=== PATIENT | female | born 1970 | race Caucasian/White ===

== ENCOUNTER 2016-11-10 08:11 | Inpatient (IN) | payer OTHER ==
[2016-11-09 09:50] VITALS: BMI 44.0
[2016-11-10] MEDS ORDERED: PROPOFOL 20 ML ONE ×2 (10:18)
[2016-11-10] MEDS ORDERED: ROCURONIUM BROMIDE 50 MG/5 ML VIAL ONE (10:18)
[2016-11-10] MEDS ORDERED: MIDAZOLAM HCL 2 MG/2 ML SINGLE DOSE VIAL ONE (10:18)
[2016-11-10] MEDS ORDERED: DEXAMETHASONE SOD PHOSPHATE 4 MG/1 ML VIAL ONE (10:20)
[2016-11-10] MEDS ORDERED: ceFAZolin SODIUM 1 GM VIAL ONE (10:20)
[2016-11-10] MEDS ORDERED: LIDOCAINE HCL/PF 2% SDV 5ML VIAL ONE (10:20)
[2016-11-10] MEDS ORDERED: KETOROLAC TROMETHAMINE 30 MG/1 ML VIAL ONE (10:20)
[2016-11-10] MEDS ORDERED: ceFAZolin SODIUM 1 GM VIAL IVPB ONE (11:18)
[2016-11-10] MEDS ORDERED: BUPIVACAINE HCL/PF 0.5% (5MG/ML) 10 ML VIAL ONE ×2 (11:47→12:33)
[2016-11-10] MEDS ORDERED: DESFLURANE GAS 240 ML BOTTLE IH ONE (11:47)
[2016-11-10] MEDS ORDERED: BUPIVACAINE HCL/PF 0.5% (5MG/ML) 10 ML VIAL IJ ONE (13:23)
[2016-11-10] MEDS ORDERED: morphine CARPU-JECT 4 MG/1 ML DISP.SYRIN ONE (14:04)
[2016-11-10] MEDS ORDERED: morphine CARPU-JECT 2 MG/1 ML DISP.SYRIN IVPUSH PRN (14:07)
[2016-11-10] MEDS ORDERED: ONDANSETRON 4 MG/2 ML VIAL IVPUSH PRN (14:07)
[2016-11-10] MEDS ORDERED: HYDROmorphone *PCA* 10MG/50ML DISP.SYRIN PCA SCH (14:15)
[2016-11-10] MEDS ORDERED: LACTATED RINGERS SOLUTION 1,000 ML IV SCH (14:15)
[2016-11-10 14:17] LABS: MCH 28.7 pg (25.7-33.7); MCHC 33.3 g/dl (32.0-36.0); MEAN CELL VOLUME 86.3 fl (80-96); MEAN PLT VOLUME 7.8 fl (7.5-11.1); PLATELET COUNT 238 K/MM3 (134-434); RDW 13.7 % (11.6-15.6); WHITE BLOOD COUNT 16.9 K/mm3 (4.0-10.0)
[2016-11-10] MEDS ORDERED: ACETAMINOPHEN INJECTION 100 ML IVPB ONE (14:21)
[2016-11-10] MEDS ORDERED: ACETAMINOPHEN 1000 MG/100 ML VIAL (NON FORMULARY) IVPB ONE (14:23)
[2016-11-10] MEDS ORDERED: TRIMETHOBENZAMIDE HCL 200MG/2ML INJ IM PRN (14:26)
[2016-11-10 14:43] LABS: ALBUMIN 3.2 g/dl (3.4-5.0); ALK PHOS 71 U/L (45-117); ANION GAP 10 (8-16); BILIRUBIN,TOTAL 0.3 mg/dL (0.2-1.0); CALCIUM 8.8 mg/dL (8.5-10.1); CO2 25 mmol/L (21-32); CREATININE 0.9 mg/dL (0.55-1.02); GLUCOSE,RANDOM 128 mg/dL (74-106); SGOT/AST 28 U/L (15-37); SGPT/ALT 24 U/L (12-78); TOT PROT 6.5 g/dl (6.4-8.2)
--- NOTE | 2016-11-10 15:16 | OP ---
DATE OF OPERATION: 11/10/2016 PREOPERATIVE DIAGNOSES: 1. Morbid obesity. 2. Gastroesophageal reflux disease. 3. Vomiting. 4. Mechanical complication of implantable device secondary to gastric band. POSTOPERATIVE DIAGNOSES: 1. Morbid obesity. 2. Gastroesophageal reflux disease. 3. Vomiting. 4. Mechanical complication of implantable device secondary to gastric band. 5. Abdominal adhesions. 6. Fibrous capsule around the stomach. PROCEDURE PERFORMED: 1. Laparoscopic vertical sleeve gastrectomy. 2. Removal of gastric band from subcutaneous port component. 3. Laparoscopic lysis of adhesions. 4. Excision of fibrous capsule around the stomach. 5. Diagnostic laparoscopy. OPERATING SURGEON: Maria Luisa Andrade MD HANDKERCHIEF CUTTER: Edmar Wilcox MD ANESTHESIA: General. OPERATIVE PROCEDURE: The patient was brought in to the operating room, placed on the OR table in supine position. All precautions were taken initially including padding for the back and the feet and Venodyne boots were placed on both lower extremities. At that point the abdomen was prepped and draped in the usual manner. A Veress needle was placed in the left upper quadrant and a pneumoperitoneum was established. A number 12 bladeless trocar was placed in the left upper quadrant. Through that trocar, a laparoscopic camera was placed. Under direct vision, a number 15 bladeless trocar was placed in the midline in a supraumbilical position, and a number 5 bladeless trocar was placed in the left costal margin. There were a lot of adhesions in the right upper quadrant secondary to the patient's previous surgery. These adhesions were lysed with a laparoscopic scissors until enough clearing was made in the right upper quadrant that a number 5 bladeless trocar was placed below the right costal margin. At this point a Kellie liver retractor was placed in the epigastrium to retract the left lobe of the liver. The patient was then placed in a 20-degree reverse Trendelenburg position and the band around the stomach was noted. The band was then pulled by the advertising assistant manager surgeon to the patient's left side. The operating surgeon dissected the fibrous capsule over the band on the lesser curvature. Once this was in full view, the band was then pulled to the patient's right side by the operating surgeon as the advertising assistant manager surgeon retracted the stomach downward. Now the capsule over the greater curvature of the band was removed and now the band was freely moveable. The band was then cut in 2 and both pieces were removed and sent off the field to Pathology as a specimen. Attention was now directed to the fibrous capsule around the stomach. This was lifted up by the advertising assistant manager and the operating surgeon and a laparoscopic scissors was used to split the fibrous capsule on the stomach from inferior all the way to superior by the liver. Once this was done, attention was now directed to the in the greater curvature. This was dissected free until the stomach was now free of all scar tissue on the greater curvature side. At this juncture, Anesthesia had a number [address] and placed it all the way until the distal stomach. With the bougie held on the lesser curve, a series of cristine were performed, the 1st two being black load cristine along the bougie 6 cm in length. This was followed by a series of purple load cristine until the final staple was fired in the left upper quadrant. The greater curve was now completely detached from the lesser curve. It should be noted that prior to firing each staple, both the anterior and posterior hunter were checked that they were equal and the area of esophagogastric junction, approximately 1.5 cm serosa remained on both the anterior and posterior hunter. At this juncture, saline was placed around the staple line and Anesthesia inserted air through the bougie, which showed the entire stomach distended, no leaks were noted, and no obstruction. At this point the resected greater curve was removed through the number 15 trocar site and sent off the field to Pathology as a specimen. Under direct vision, all trocars removed and pneumoperitoneum released. The number 15 port site was now opened and dissected with continuous electrocautery to the fibrous capsule around the port. The port fibrous capsule was dissected off the port and the port was removed from the right anterior rectus muscle and sent off the field as specimen with the rest of the band. At that point, all trocar sites received 0.25% Marcaine and were closed with 4-0 Biosyn in subcuticular fashion except for the area of the port, which 1st was closed with 3-0 Vicryl in subcutaneous fashion, followed by 4-0 Biosyn in subcuticular fashion. Dressings were applied. Patient awoken from anesthesia and transferred out of the operating room to the recovery room in stable condition. ANESTHESIA FOR CASE: General. SURGEON: Maria Luisa Andrade MD HANDKERCHIEF CUTTER: Edmar Wiclox MD EXPECTED BLOOD LOSS: 50 mL. Patient transferred to the recovery room in stable condition. MARIA LUISA ANDRADE M.D. MEENA/[id number]
--- NOTE | 2016-11-10 16:20 | EKG ---
Test Reason : Blood Pressure : / mmHG Vent. Rate : 093 BPM Atrial Rate : 093 BPM P-R Int : 144 ms QRS Dur : 086 ms QT Int : 382 ms P-R-T Axes : 061 050 043 degrees QTc Int : 474 ms NORMAL SINUS RHYTHM NORMAL ECG WHEN COMPARED WITH ECG OF 15-SEP-2016 08:43, QT HAS LENGTHENED Confirmed by DANIEL MORAN MD ([id number]) on 11/10/2016 4:20:39 PM Referred By: Niles Andrade Confirmed By:DANIEL MORAN MD
[2016-11-10] MEDS: SODIUM CHLORIDE 1,000 ML IV SCH (16:30)
[2016-11-10] MEDS ORDERED: LORAZEPAM CARPU-JECT 2 MG/ML DISP.SYRIN IVPUSH PRN (21:21)
[2016-11-10] MEDS: ENOXAPARIN NA (PORCINE) 40 MG/0.4 ML DISP.SYRIN SQ SCH (22:22)
[2016-11-10] MEDS: FAMOTIDINE 20 MG/50 ML IVPB 50 ML IVPB SCH (22:24)
[2016-11-11] MEDS: SODIUM CHLORIDE 1,000 ML IV SCH (06:00)
[2016-11-11 08:03] LABS: MCH 29.2 pg (25.7-33.7); MCHC 33.7 g/dl (32.0-36.0); MEAN CELL VOLUME 86.6 fl (80-96); MEAN PLT VOLUME 8.1 fl (7.5-11.1); PLATELET COUNT 223 K/MM3 (134-434); RDW 13.7 % (11.6-15.6); WHITE BLOOD COUNT 13.1 K/mm3 (4.0-10.0)
[2016-11-11 08:31] LABS: ALBUMIN 2.7 g/dl (3.4-5.0); ANION GAP 8 (8-16); BILIRUBIN,TOTAL 0.4 mg/dL (0.2-1.0); CALCIUM 8.2 mg/dL (8.5-10.1); CO2 26 mmol/L (21-32); CREATININE 0.7 mg/dL (0.55-1.02); GLUCOSE,RANDOM 91 mg/dL (74-106); SGOT/AST 31 U/L (15-37); SGPT/ALT 20 U/L (12-78); TOT PROT 5.8 g/dl (6.4-8.2)
[2016-11-11 08:32] LABS: ALK PHOS 62 U/L (45-117)
[2016-11-11] MEDS: ENOXAPARIN NA (PORCINE) 40 MG/0.4 ML DISP.SYRIN SQ SCH (10:09)
[2016-11-11] MEDS: FAMOTIDINE 20 MG/50 ML IVPB 50 ML IVPB SCH (10:09)
[2016-11-11] MEDS ORDERED: ACETAMINOPHEN 325 MG TABLET (FP) PO PRN (14:33)
[2016-11-11] MEDS ORDERED: oxyCODONE HCL 5 MG TABLET PO PRN (14:33)
[2016-11-11] MEDS ORDERED: SODIUM CHLORIDE 1,000 ML IV SCH (14:45)
--- NOTE | 2016-11-11 16:51 | PN ---
Progress Note (short form) - Note Progress Note: POD #1 Afebrile, VSS P- 73-74 BP_102/66 Pt doing well No N/V Tolerating po clear liquids- 2 oz po TID P/E- Abd- all trocar sites clean, dry WBC- 13.1 ( decreased from 16.9) H/H- 12.4/36.8 UGI- no leak, no obstruction P- D/C pt home F/U- in office in 6 days
[2016-11-11 17:54] VITALS: BP 96/56; PULSE 86; TEMP 98.4
--- NOTE | 2016-11-14 13:38 | PATH ---
Surgical Pathology Report Patient Name: LUIS GUILLAUME [facility]. Rec. #: [id number] /Age/Gender: 1970 (Age: 46) / F Account: [id number] Location: 4 SO PEDS/ADOL Taken: 11/10/2016 Received: 11/11/2016 Reported: 11/14/2016 Physicians: Niles Andrade M.D. Specimen(s) Received A: GREATER CURVATURE OF STOMACH B: GASTRIC BAND & PORT Clinical History Obesity, reflux Final Diagnosis A. STOMACH, GREATER CURVATURE, VERTICAL SLEEVE GASTRECTOMY: PORTION OF STOMACH WITH MILD CHRONIC GASTRITIS. IMMUNOSTAIN FOR H.PYLORI IS NEGATIVE FOR ORGANISMS. B. 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 Electronically Signed James Pierson M.D. Gross Description A. Received in formalin, labeled "greater curvature of the stomach," is a 71 gram, 14.0 x 5.0 x 2.2 cm. portion of stomach with a stapled margin of resection. The serosa is sales-enriquez with minimal attached fat. The mucosa is sales-pink with focally flattened folds No mucosal masses are identified. Room Clerk sections are submitted in one cassette. B. Received fresh labeled "gastric band and subQ port" are 2 portions of a gastric band measuring 7.3 x 1.8 x 0.9 cm and 9.0 x 1.8 x 0.9 cm. The smaller portion displays an attached 29 cm in length portion of tubing. Also received within the same container is a 3.1 cm in diameter x 1.7 cm in depth sales, circular device, consistent with a port. The port displays an 18 cm in length portion of tubing extending from one aspect. No soft tissue is present. No sections are submitted, gross only. DL/11/11/2016 saudi/11/11/2016
== END 2016-11-11 18:35 | disposition home or self-care (01) | DRG 620 ==
LOC: JSAMEDAYSX 08:11 → J4S 16:10
PROVIDERS: ADMIT Surgery; ATTEND Surgery
PROC: 0WP Anatomical Regions, General, Removal (ICD-10-PCS; 2016-11-10)
PROC: 0DB64Z3 Excision of Stomach, Percutaneous Endoscopic Approach, Vertical (ICD-10-PCS; principal; 2016-11-10 10:00)
PROC: 0DNW4ZZ Release Peritoneum, Percutaneous Endoscopic Approach (ICD-10-PCS; 2016-11-10 10:00)
DX: E66.01 Morbid (severe) obesity due to excess calories (principal); T85.598A Other mechanical complication of other gastrointestinal prosthetic devices, implants and grafts, initial encounter; Z68.41 Body mass index [BMI] 40.0-44.9, adult; K21.9 Gastro-esophageal reflux disease without esophagitis; R11.10 Vomiting, unspecified; Y83.9 Surgical procedure, unspecified as the cause of abnormal reaction of the patient, or of later complication, without mention of misadventure at the time of the procedure; K66.0 Peritoneal adhesions (postprocedural) (postinfection)
CPT/HCPCS: 36415; 74241-TC; 80053; 84703; 85027; 86850; 86900; 86901; 88300-TC; 88305-TC; 93005; 93010; 94010; 94760

== ENCOUNTER 2016-11-17 11:05 | Emergency (ER) | payer OTHER ==
[2016-11-17 11:10] VITALS: TEMP 98.1; BMI 42.0
[2016-11-17] MEDS ORDERED: SODIUM CHLORIDE 1,000 ML IV STA ×2 (11:12→15:18)
[2016-11-17] MEDS ORDERED: ONDANSETRON 4 MG/2 ML VIAL IVPB ONE (11:13)
--- NOTE | 2016-11-17 11:13 | PDOC ---
History of Present Illness - General Chief Complaint: Weakness Stated Complaint: R LEG PINCHING, WEAKNESS Time Seen by Provider: 11/17/16 11:11 - History of Present Illness Initial Comments: 11/17/16 12:47 Complaint: Pain right leg History of present illness: Localized pain in the right calf, medially, just below the knee, beginning 4 days ago. Pain has now subsided, but when she told her surgeon at follow-up visit about the pain, he referred her to the emergency room to make sure there was no DVT. She underwent removal of a LAP-BAND with replacement by a gastric sleeve approximately one week ago. This surgery was uncomplicated. Review of systems: There was no redness, swelling, posterior calf or ankle pain. There was no injury. There was left shoulder pain that persists after the surgery, presumably due to diaphragmatic irritation from laparoscopy. There has been increased shortness of breath with exertion for the last 2 days, when climbing hills and walking her dog. No nanci chest pain, fever, cough, nausea, diaphoresis. No vomiting, tolerating by mouth fluids well. Several episodes of diarrhea over the weekend which have resolved Past medical history: Sleep apnea, morbid obesity, LAP-BAND surgery, GERD, mood disorder Medications: NuvaRing, Prozac, Protonix ALLERGIES: Morphine, hydrocodone, oxycodone Social history/family history reviewed and noncontributory. Physical exam: Alert and oriented 3, well-developed well-nourished, no acute distress, cheerful and cooperative Afebrile, vital signs normal except for mild tachycardia 122 bpm. oxygen saturation of 100% on room air. Rate 16 unlabored. PERRLA 4 mm, fundi benign, ENT clear Neck supple without bruit mass or nodes Chest clear CV regular without murmur rub or gallop pulses full and symmetric no JVD or edema Abdomen with scar secondary to recent laparoscopic surgery. Nondistended. Bowel sounds normal. Soft without mass tenderness or organomegaly. Neurological intact Extremities: The right leg shows no swelling, edema, tenderness, cords, erythema , or induration. Pulses are full. No distal sensory or motor deficits. Impression: Transient localized pain in the right calf, medially, just below the knee, which has resolved. This was subsequent to laparoscopic surgery. Mild tachycardia and dyspnea with exertion, possibly due to dehydration Plan: CBC, chemistries, ultrasound, and further evaluation depending on results. Past History - Past Medical History Allergies/Adverse Reactions: Allergies Allergy/AdvReac Type Severity Reaction Status Date / Time hydrocodone Allergy Severe Rash Verified 11/17/16 11:06 morphine Allergy Severe Itching Verified 11/17/16 11:06 oxycodone AdvReac Mild Itching Verified 11/17/16 11:06 Home Medications: Ambulatory Orders Etonogestrel/Ethinyl Estradiol [Nuvaring Vaginal Ring] 1 applic ASDIR 03/01/16 Fluoxetine HCl [Prozac] 90 mg PO WEEKLY 03/01/16 Pantoprazole Sodium [Protonix] 40 mg PO DAILY 03/01/16 Anemia: Yes (MANY YEARS AGO) Asthma: No Cancer: No Cardiac Disorders: No CVA: No COPD: No CHF: No Dementia: No Diabetes: No GI Disorders: Yes (reflux) Disorders: No HTN: No Hypercholesterolemia: No (BORDERLINE/DIET CONTROLLED) Liver Disease: No Seizures: No Thyroid Disease: No - Surgical History Abdominal Surgery: Yes (LAP BAND 2008,LOST 68 LBS) Appendectomy: No Cardiac Surgery: No Cholecystectomy: No Lung Surgery: No Neurologic Surgery: No Orthopedic Surgery: No - Psycho/Social/Smoking Cessation Hx Anxiety: No Suicidal Ideation: No Smoking History: Never smoked Have you smoked in the past 12 months: No If you are a former smoker, when did you quit?: 2004 Information on smoking cessation initiated: No Hx Alcohol Use: Yes Drug/Substance Use Hx: No Substance Use Type: Alcohol Hx Substance Use Treatment: No *Physical Exam - Vital Signs Last Vital Signs Temp Pulse Resp BP Pulse Ox 98.1 F 122 H 18 130/96 100 11/17/16 11:06 11/17/16 11:06 11/17/16 11:06 11/17/16 11:06 11/17/16 11:06 ED Treatment Course - LABORATORY CBC & Chemistry Diagram: 11/17/16 11:19 11/17/16 11:19 Medical Decision Making - Medical Decision Making 11/17/16 13:08 Vascular study of the right leg negative for DVT. Laboratories including ABG pending. IV fluid administered. 11/17/16 14:55 ABG is normal. Heart rate has normalized to 80 after fluids. Physical exam remains unchanged. Patient is feeling better. Seen in the ER by surgery PA Wilma Mclaughlin. She will follow. Patient discharged fully ambulatory and in no pain or other discomfort with no shortness of breath to follow up as directed 11/17/16 15:17 *DC/Admit/Observation/Transfer Diagnosis at time of Disposition: Dehydration Leg pain Qualifiers: Laterality: right Qualified Code(s): M79.604 - Pain in right leg - Discharge Dispostion Disposition: HOME Condition at time of disposition: Improved Admit: No - Referrals Referrals: Niles Andrade MD [Primary Care Provider] - 3 days - Patient Instructions Printed Discharge Instructions: DI for Dehydration -- Adult
[2016-11-17 12:21] LABS: BASOPHIL 2.8 % (0-2.0); MCH 29.6 pg (25.7-33.7); MCHC 34.7 g/dl (32.0-36.0); MEAN CELL VOLUME 85.5 fl (80-96); MEAN PLT VOLUME 9.1 fl (7.5-11.1); NEUTROPHILS 66.9 % (42.8-82.8); PLATELET COUNT 264 K/MM3 (134-434); RDW 12.4 % (11.6-15.6); WHITE BLOOD COUNT 15.2 K/mm3 (4.0-10.8)
[2016-11-17 12:49] LABS: PH,URINE 5.5 (4.5-8); URINE APPEARANCE Cloudy; URINE BILIRUBIN 2+ (NEGATIVE); URINE GLUCOSE (UA) Negative (NEGATIVE); URINE KETONE 2+ (NEGATIVE); URINE LEUK ESTERASE Negative (NEGATIVE); URINE NITRITE Negative (NEGATIVE); URINE UROBILINOGEN 1.0 E.U/dl (0.2-1.0)
[2016-11-17 12:52] LABS: URINE BLOOD 2+ (NEGATIVE); URINE COLOR YELLOW; URINE PROTEIN 1+ (NEGATIVE)
[2016-11-17 12:53] LABS: URINE WBC 0-3 (3-5)
[2016-11-17 12:54] LABS: URINE BACTERIA MODERATE /hpf (NEGATIVE)
[2016-11-17 13:44] LABS: ARTERIAL BLD GAS O2 SATURATION 98.4 % (90-98.9); ARTERIAL BLOOD GAS pH 7.39 (7.35-7.45)
[2016-11-17 13:45] LABS: ALLENS TEST POSITIVE; ART PUNCT SITE RIGHT RADIAL; ARTERIAL BLOOD GAS HCO3 18.5 meq/L (22-26); LPM/O2% 21%; METHEMOGLOBIN 0.5 % (0.4-1.5); PT. ON O2? NO; TYPE OF O2 ROOM AIR
[2016-11-17 13:47] LABS: ALBUMIN 3.7 g/dl (3.5-5.0); ALK PHOS 84 U/L (32-92); ANION GAP 14 (8-16); BILIRUBIN,TOTAL 0.7 mg/dl (0.2-1.0); CALCIUM 9.5 mg/dl (8.4-10.2); CO2 20 mmol/L (22-28); CREATININE 0.9 mg/dl (0.6-1.3); GLUCOSE,RANDOM 91 mg/dl (74-106); SGOT/AST 25 U/L (10-42); SGPT/ALT 29 U/L (10-40); TOT PROT 7.4 g/dl (6.4-8.3)
[2016-11-17 14:02] VITALS: BP 103/45; PULSE 82
[2016-11-17 14:08] LABS: CPK(DFH) 59 IU/L (26-140)
[2016-11-17 14:25] LABS: TROPONIN I (DFP) < 0.03 ng/ml (0.03-0.50)
== END 2016-11-17 15:37 | disposition home or self-care (01) ==
LOC: FER 11:05
PROC: 3E0F7GC Introduction of Other Therapeutic Substance into Respiratory Tract, Via Natural or Artificial Opening (ICD-10-PCS; principal; 2016-11-17)
DX: E86.0 Dehydration (principal); Z98.84 Bariatric surgery status; G47.30 Sleep apnea, unspecified; K21.9 Gastro-esophageal reflux disease without esophagitis; Z87.891 Personal history of nicotine dependence
CPT/HCPCS: 36415; 36600; 80053; 81003; 81015; 82375; 82550; 82803; 83050; 84484; 85025; 93971-TC; 99283-25

== ENCOUNTER 2018-06-04 11:09 | Day surgery (SDC) | payer OTHER ==
[2018-05-30 09:48] VITALS: BMI 43.7
[2018-06-04 15:09] VITALS: BP 112/64; PULSE 72; TEMP 98
--- NOTE | 2018-06-06 16:33 | PATH ---
Surgical Pathology Report Patient Name: LUIS GUILLAUME [facility]. Rec. #: [id number] /Age/Gender: 1970 (Age: 48) / F Account: [id number] Location: [facility] Taken: 06/04/2018 Received: 06/04/2018 Reported: 06/06/2018 Physicians: Tom Cuevas M.D. Specimen(s) Received A: SECOND PORTION OF DUODENUM B: BX ANTRUM Clinical History GERD, history of gastric sleeve Postoperative diagnosis: Gastritis Final Diagnosis A. SECOND PORTION OF DUODENUM, BIOPSY: DUODENAL MUCOSA WITH NO PATHOLOGIC FINDINGS. B. ANTRUM, BIOPSY: MILD CHRONIC GASTRITIS. IMMUNOSTAIN IS NEGATIVE FOR H PYLORI ORGANISMS. Electronically Signed Mayuri Hoyos M.D. Gross Description A. Received in formalin, labeled "biopsy second portion of duodenum" are 2 sales, irregular portions of soft tissue measuring 0.4 and 0.5 cm. in greatest dimension. The specimens are submitted in toto in one cassette. B. Received in formalin, labeled "biopsy antrum" are 2 sales, irregular portions of soft tissue averaging 0.3 cm. in greatest dimension. The specimens are submitted in toto in one cassette. 06/04/201806/04/2018
== END 2018-06-04 13:30 | disposition home or self-care (01) ==
LOC: FASU-ENDO 11:09
PROVIDERS: ATTEND Internal Medicine Gastroenterology
PROC: 0DB68ZX Excision of Stomach, Via Natural or Artificial Opening Endoscopic, Diagnostic (ICD-10-PCS; 2018-06-04)
PROC: 0DB98ZX Excision of Duodenum, Via Natural or Artificial Opening Endoscopic, Diagnostic (ICD-10-PCS; principal; 2018-06-04 12:30)
DX: K29.50 Unspecified chronic gastritis without bleeding (principal); R12 Heartburn
CPT/HCPCS: 84703; 88305-TC; 88342-TC

== ENCOUNTER 2020-08-11 08:15 | Inpatient (IN) | payer OTHER ==
[2020-08-06 16:26] VITALS: BMI 44.2
[2020-08-11] MEDS ORDERED: BUPIVACAINE LIPOSOME/PF (EXPAREL) 266 MG/20 ML VIAL ONE (09:47)
[2020-08-11] MEDS ORDERED: BUPIVACAINE HCL/PF 0.5% (5 MG/ML) 30 ML VIAL IJ ONE (09:47)
[2020-08-11] MEDS ORDERED: MIDAZOLAM HCL 2 MG/2 ML SINGLE DOSE VIAL ONE (09:47)
[2020-08-11] MEDS ORDERED: LIDOCAINE HCL/PF 2% SDV 5ML VIAL ONE (10:21)
[2020-08-11] MEDS ORDERED: PROPOFOL 20 ML ONE ×2 (10:21)
[2020-08-11] MEDS ORDERED: ROCURONIUM BROMIDE 50 MG/5 ML SYRINGE ONE ×4 (10:21→16:22)
[2020-08-11] MEDS ORDERED: fentaNYL CITRATE 250 MCG/5 ML VIAL ONE (10:21)
[2020-08-11] MEDS ORDERED: EPHEDRINE SULFATE/0.9% NACL/PF 50 MG/10 ML SYRINGE NR ONE (11:05)
[2020-08-11] MEDS ORDERED: NEOSTIGMINE METHYLSULFATE 0.5 MG/1 ML - 10 ML MDV ONE (16:29)
[2020-08-11] MEDS ORDERED: BUPIVACAINE HCL/PF 0.25% (2.5MG/ML) 10 ML VIAL IJ ONE ×2 (16:49)
[2020-08-11] MEDS ORDERED: HYDROmorphone HCl 2 MG/ML VIAL IVPB PRN (17:14)
[2020-08-11] MEDS ORDERED: SODIUM CHLORIDE 1,000 ML IV SCH (17:15)
[2020-08-11] MEDS ORDERED: HYDROmorphone HCL CARPU-JECT 1 MG/1 ML DISP.SYRIN IVPUSH PRN (17:31)
[2020-08-11] MEDS ORDERED: LACTATED RINGERS SOLUTION 1,000 ML IV SCH (17:45)
[2020-08-11] MEDS ORDERED: HYDROmorphone HCL 0.5 MG/0.5 ML SYRINGE ONE (18:00)
[2020-08-11 18:01] LABS: HEMATOCRIT 38.1 % (32.4-45.2); HEMOGLOBIN 12.2 GM/dl (10.7-15.3); MCH 26.2 pg (25.7-33.7); MEAN CELL VOLUME 82.1 fl (80-96); PLATELET COUNT 213 K/MM3 (134-434); RBC 4.64 M/mm3 (3.60-5.2); RDW 13.9 % (11.6-15.6); WHITE BLOOD COUNT 19.9 K/mm3 (4.0-10.8)
[2020-08-11 18:26] LABS: ALBUMIN 3.4 g/dl (3.4-5.0); BILIRUBIN,TOTAL 0.6 mg/dl (0.2-1); CALCIUM 8.2 mg/dl (8.5-10); CREATININE 1.1 mg/dl (0.55-1.3); POTASSIUM 4.7 mmol/L (3.5-5.1); TOT PROT 6.3 g/dl (6.4-8.2)
[2020-08-11] MEDS: FAMOTIDINE 20 MG/50 ML IVPB 20 MG/50 ML MG IVPB SCH (22:03)
[2020-08-11] MEDS: HYDROmorphone HCl 2 MG/ML VIAL IVPB PRN (22:34)
[2020-08-12] MEDS: HYDROmorphone HCl 2 MG/ML VIAL IVPB PRN ×4 (02:43→19:24)
[2020-08-12] MEDS: ONDANSETRON 4 MG/2 ML VIAL IVPUSH PRN ×4 (02:44→23:21)
[2020-08-12 08:15] LABS: HEMATOCRIT 36.7 % (32.4-45.2); HEMOGLOBIN 11.5 GM/dl (10.7-15.3); MCH 26.2 pg (25.7-33.7); MCHC 31.4 g/dl (32.0-36.0); MEAN CELL VOLUME 83.4 fl (80-96); MEAN PLT VOLUME 8.1 fl (7.5-11.1); PLATELET COUNT 198 K/MM3 (134-434); RDW 14.3 % (11.6-15.6); WHITE BLOOD COUNT 14.6 K/mm3 (4.0-10.8)
[2020-08-12 08:30] LABS: ALBUMIN 3.2 g/dl (3.4-5.0); BILIRUBIN,TOTAL 0.8 mg/dl (0.2-1); CALCIUM 8.2 mg/dl (8.5-10); CREATININE 0.7 mg/dl (0.55-1.3)
[2020-08-12] MEDS ORDERED: SUMATRIPTAN SUCCINATE 6 MG/0.5 ML VIAL SQ ONE ×2 (09:15→21:45)
[2020-08-12] MEDS: FAMOTIDINE 20 MG/50 ML IVPB 20 MG/50 ML MG IVPB SCH ×2 (10:17→21:32)
[2020-08-12] MEDS: ENOXAPARIN NA (PORCINE) 40 MG/0.4 ML DISP.SYRIN SQ SCH (13:44)
[2020-08-12] MEDS ORDERED: REFRIGERATED ANITBIOTICS ONE (21:36)
[2020-08-13] MEDS: HYDROmorphone HCl 2 MG/ML VIAL IVPB PRN ×4 (03:00→22:19)
[2020-08-13] MEDS: ONDANSETRON 4 MG/2 ML VIAL IVPUSH PRN ×3 (03:40→22:19)
[2020-08-13 08:24] LABS: BASO % 0.8 % (0-2.0); EOS % 1.2 % (0-4.5); HEMATOCRIT 35.7 % (32.4-45.2); HEMOGLOBIN 11.3 GM/dl (10.7-15.3); LYMPH % 16.2 % (8-40); MCH 25.9 pg (25.7-33.7); MCHC 31.7 g/dl (32.0-36.0); MEAN CELL VOLUME 81.8 fl (80-96); MEAN PLT VOLUME 8.5 fl (7.5-11.1); MONO % 7.7 % (3.8-10.2); NEUT % 74.1 % (42.8-82.8); PLATELET COUNT 191 K/MM3 (134-434); RBC 4.36 M/mm3 (3.60-5.2); WHITE BLOOD COUNT 12.2 K/mm3 (4.0-10.8)
[2020-08-13 08:34] LABS: ALBUMIN 3.2 g/dl (3.4-5.0); BILIRUBIN,TOTAL 0.9 mg/dl (0.2-1); CALCIUM 8.1 mg/dl (8.5-10); CREATININE 0.7 mg/dl (0.55-1.3); POTASSIUM 4.1 mmol/L (3.5-5.1)
[2020-08-13] MEDS: FAMOTIDINE 20 MG/50 ML IVPB 20 MG/50 ML MG IVPB SCH ×2 (10:08→22:19)
[2020-08-13] MEDS ORDERED: SUMATRIPTAN SUCCINATE 6 MG/0.5 ML VIAL SQ ONE (11:15)
[2020-08-13] MEDS: ENOXAPARIN NA (PORCINE) 40 MG/0.4 ML DISP.SYRIN SQ SCH ×2 (12:30)
[2020-08-13] MEDS: SODIUM CHLORIDE 1,000 ML IV SCH (14:20)
[2020-08-14] MEDS: HYDROmorphone HCl 2 MG/ML VIAL IVPB PRN (04:00)
[2020-08-14 10:14] LABS: HEMATOCRIT 35.7 % (32.4-45.2); HEMOGLOBIN 11.4 GM/dl (10.7-15.3); MCH 26.5 pg (25.7-33.7); MCHC 32.1 g/dl (32.0-36.0); MEAN CELL VOLUME 82.4 fl (80-96); PLATELET COUNT 179 K/MM3 (134-434); RBC 4.32 M/mm3 (3.60-5.2); RDW 14.1 % (11.6-15.6); WHITE BLOOD COUNT 9.8 K/mm3 (4.0-10.8)
[2020-08-14] MEDS: FAMOTIDINE 20 MG/50 ML IVPB 20 MG/50 ML MG IVPB SCH ×2 (10:42→21:10)
[2020-08-14 10:46] LABS: ALBUMIN 3.1 g/dl (3.4-5.0); BILIRUBIN,TOTAL 1.3 mg/dl (0.2-1); CALCIUM 8.3 mg/dl (8.5-10); CREATININE 0.8 mg/dl (0.55-1.3); POTASSIUM 3.9 mmol/L (3.5-5.1); TOT PROT 5.8 g/dl (6.4-8.2)
[2020-08-14] MEDS: ENOXAPARIN NA (PORCINE) 40 MG/0.4 ML DISP.SYRIN SQ SCH ×2 (11:56)
[2020-08-14] MEDS ORDERED: SUMATRIPTAN SUCCINATE 6 MG/0.5 ML VIAL SQ PRN (13:46)
[2020-08-14] MEDS ORDERED: oxyCODONE HCL 5 MG TABLET PO PRN (14:08)
[2020-08-14] MEDS ORDERED: diphenhydrAMINE HCL 25 MG CAPSULE (FP) PO PRN (14:15)
[2020-08-14] MEDS: SODIUM CHLORIDE 1,000 ML IV SCH (14:30)
[2020-08-15] MEDS: ENOXAPARIN NA (PORCINE) 40 MG/0.4 ML DISP.SYRIN SQ SCH ×2 (02:53→12:06)
[2020-08-15] MEDS: FAMOTIDINE 20 MG/50 ML IVPB 20 MG/50 ML MG IVPB SCH (09:30)
[2020-08-15 12:15] VITALS: BP 128/53; PULSE 74; TEMP 98.4
== END 2020-08-15 14:20 | disposition home or self-care (01) | DRG 620 ==
LOC: FM/S 08:15
PROVIDERS: ADMIT Surgery; ATTEND Surgery
PROC: 0DB84ZZ Excision of Small Intestine, Percutaneous Endoscopic Approach (ICD-10-PCS; 2020-08-11)
PROC: 0DJ04ZZ Inspection of Upper Intestinal Tract, Percutaneous Endoscopic Approach (ICD-10-PCS; 2020-08-11)
PROC: 0DB64Z3 Excision of Stomach, Percutaneous Endoscopic Approach, Vertical (ICD-10-PCS; principal; 2020-08-11 11:13)
DX: E66.01 Morbid (severe) obesity due to excess calories (principal); K55.9 Vascular disorder of intestine, unspecified; Z68.41 Body mass index [BMI] 40.0-44.9, adult; N73.6 Female pelvic peritoneal adhesions (postinfective)
CPT/HCPCS: 36415; 74018-TC-FY; 74240-TC-FY; 80053; 84703; 85025; 85027; 86850; 86900; 86901; 88305-TC; 94760